=== PATIENT | male | born 1965 | race African-American/Black ===

== ENCOUNTER 2021-10-29 03:01 | Inpatient (IN) | payer MEDICARE, MEDICAID ==
[~2021-10-29] VITALS: Ht 188 cm; Wt 83.9 kg
[2021-10-29] MEDS ORDERED: ACETAMINOPHEN 325MG TABLET PO STA (03:35)
[2021-10-29] MEDS ORDERED: VANCOMYCIN 1G PREMIX 200 ML IV ONE (03:45)
[2021-10-29] MEDS ORDERED: PIPERACILLIN/TAZ 3.375G PREMIX 50 ML IV ONE (03:45)
[2021-10-29 04:22] LABS: HEMATOCRIT. 37.7 % (42.0-52.0); HEMOGLOBIN. 12.2 g/dL (14.0-18.0); MEAN CORPUSCULAR HEMOGLOBIN 28.6 pg (28.0-32.0); MEAN CORPUSCULAR VOLUME 88.6 fL (80.0-94.0); MEAN PLATELET VOLUME 7.9 fl (7.4-10.4); PLATELET 232 x1000/uL (130-400); RED BLOOD CELL COUNT 4.25 mill/uL (4.7-6.1); RED CELL DISTRIBUTION WIDTH 17.9 % (11.6-14.6)
[2021-10-29] MEDS ORDERED: IBUPROFEN 600MG TABLET PO ONE (04:30)
[2021-10-29 04:31] LABS: CHLORIDE 104 mEq/L (98-107)
[2021-10-29 04:42] LABS: INR 1.1; PROTHROMBIN TIME 11.4 sec (9.6-11.0)
[2021-10-29] MEDS ORDERED: SODIUM CHLORIDE 0.9% 1000ML BAG (SEPSIS BOLUS) IV ONE (05:15)
[2021-10-29 05:37] LABS: PLATELET ESTIMATE NORMAL
[2021-10-29 09:00] VITALS: BP 167/90
[2021-10-29] MEDS ORDERED: LORAZEPAM 2MG/ML CPJ IV PRN (09:45)
[2021-10-29] MEDS ORDERED: ENOXAPARIN 40MG/0.4ML SYR SUBCUT SCH (09:45)
[2021-10-29] MEDS ORDERED: DOCUSATE SODIUM 100MG CAPSULE PO PRN (09:45)
[2021-10-29] MEDS ORDERED: DIPHENHYDRAMINE 50MG/ML VIAL IV PRN (09:45)
[2021-10-29] MEDS ORDERED: IPRATROPIUM/ALBUTEROL 0.5-3(2.5)MG/3ML NEB HHN PRN (09:45)
[2021-10-29 10:33] VITALS: BP 167/90
[2021-10-29] MEDS: GUAIFENESIN 200MG/10ML SUGAR FREE UDC PO PRN (11:54)
[2021-10-29] MEDS: HYDROCODONE/ACETAMINOPHEN 5/325MG TABLET PO PRN (11:54)
[2021-10-29] MEDS: ENOXAPARIN 30MG/0.3ML SYR SUBCUT SCH (11:55)
[2021-10-29 12:00] VITALS: BP 169/95
[2021-10-29] MEDS: AMLODIPINE 10MG TABLET PO SCH (13:28)
[2021-10-29] MEDS: CARVEDILOL 6.25 MG TABLET PO SCH ×2 (13:28→21:33)
[2021-10-29] MEDS: MAGNESIUM/ALUMINUM HYDROXIDE/SIMETHICONE 30ML UDC PO PRN (13:43)
[2021-10-29] MEDS ORDERED: LEVOFLOXACIN 500MG PREMIX 100 ML IV SCH (14:00)
[2021-10-29] MEDS: SODIUM CHLORIDE 0.9% INJ 3ML FLUSH IVF SCH ×2 (14:00→21:33)
[2021-10-29] MEDS: ONDANSETRON HCL 4MG/2ML INJ IV PRN (14:09)
[2021-10-29] MEDS: ACETAMINOPHEN 325MG TABLET PO PRN (15:10)
[2021-10-29] MEDS: PROMETHAZINE HCL 6.25 MG/5 ML 118ML PO PRN (15:11)
[2021-10-29 16:00] VITALS: BP 165/87
[2021-10-29] MEDS: MORPHINE SULFATE 2 MG/ML CPJ (NOT FOR IM USE) IV PRN (18:37)
[2021-10-29] MEDS: HYDRALAZINE 20MG/ML VIAL IV PRN (18:37)
[2021-10-29 19:16] LABS: CLARITY URINE CLEAR (CLEAR); COLOR URINE YELLOW (YELLOW); KETONES URINE NEGATIVE (NEGATIVE); LEUKOCYTE ESTERASE URINE NEGATIVE (NEGATIVE); NITRITE URINE NEGATIVE (NEGATIVE); OCCULT BLOOD URINE 1+ (NEGATIVE); PROTEIN URINE 4+ (NEGATIVE); SPECIFIC GRAVITY URINE 1.016 (1.005-1.030); UROBILINOGEN URINE 0.2 E.U./dL (0.2-1.0)
[2021-10-29 20:00] VITALS: BP 151/85
[2021-10-29] MEDS: ATORVASTATIN CALCIUM 20MG TABLET PO SCH (21:33)
[2021-10-30] VITALS (7 sets, daily range): BP systolic 139–181; BP diastolic 83–106
[2021-10-30] MEDS: ONDANSETRON HCL 4MG/2ML INJ IV PRN ×2 (01:59→22:03)
[2021-10-30] MEDS: MORPHINE SULFATE 2 MG/ML CPJ (NOT FOR IM USE) IV PRN (02:00)
[2021-10-30] MEDS: GUAIFENESIN 200MG/10ML SUGAR FREE UDC PO PRN (04:59)
[2021-10-30] MEDS: CLONIDINE 0.1MG TABLET PO PRN ×2 (04:59→19:59)
[2021-10-30] MEDS: SODIUM CHLORIDE 0.9% INJ 3ML FLUSH IVF SCH ×3 (06:10→20:00)
[2021-10-30] MEDS: ACETAMINOPHEN 325MG TABLET PO PRN (06:11)
[2021-10-30] MEDS: HYDROCODONE/ACETAMINOPHEN 5/325MG TABLET PO PRN ×2 (08:07→19:59)
[2021-10-30] MEDS: ASPIRIN 81MG TABLET PO SCH (08:07)
[2021-10-30] MEDS: CARVEDILOL 6.25 MG TABLET PO SCH ×2 (09:00→20:00)
[2021-10-30] MEDS: AMLODIPINE 10MG TABLET PO SCH (09:00)
[2021-10-30] MEDS: ENOXAPARIN 30MG/0.3ML SYR SUBCUT SCH (11:00)
[2021-10-30] MEDS ORDERED: VANCOMYCIN 1GM PMX (XELLIA) 200 ML IV SCH (13:00)
[2021-10-30 16:53] LABS: HEMATOCRIT. 33.9 % (42.0-52.0); HEMOGLOBIN. 11.1 g/dL (14.0-18.0); MEAN CORPUSCULAR HEMOGLOBIN 28.1 pg (28.0-32.0); MEAN CORPUSCULAR VOLUME 86.4 fL (80.0-94.0); PLATELET 216 x1000/uL (130-400); RED BLOOD CELL COUNT 3.93 mill/uL (4.7-6.1); RED CELL DISTRIBUTION WIDTH 18.2 % (11.6-14.6)
[2021-10-30] MEDS: MAGNESIUM/ALUMINUM HYDROXIDE/SIMETHICONE 30ML UDC PO PRN (16:57)
[2021-10-30 17:03] LABS: CHLORIDE 100 mEq/L (98-107)
[2021-10-30 17:28] LABS: HEPATITIS B SURFACE ANTIGEN NEGATIVE
[2021-10-30] MEDS: HYDRALAZINE 20MG/ML VIAL IV PRN (18:10)
[2021-10-30] MEDS: ATORVASTATIN CALCIUM 20MG TABLET PO SCH (19:59)
[2021-10-30 23:21] LABS: PLATELET ESTIMATE NORMAL
[2021-10-31] VITALS (7 sets, daily range): BP systolic 141–170; BP diastolic 75–90
[2021-10-31] MEDS: ACETAMINOPHEN 325MG TABLET PO PRN (04:02)
[2021-10-31] MEDS: CLONIDINE 0.1MG TABLET PO PRN ×2 (05:39→16:18)
[2021-10-31] MEDS: SODIUM CHLORIDE 0.9% INJ 3ML FLUSH IVF SCH ×3 (05:41→22:52)
[2021-10-31] MEDS: PROMETHAZINE HCL 6.25 MG/5 ML 118ML PO PRN (05:47)
[2021-10-31 06:29] LABS: HEMATOCRIT. 34.7 % (42.0-52.0); HEMOGLOBIN. 11.4 g/dL (14.0-18.0); MEAN CORPUSCULAR HEMOGLOBIN 28.5 pg (28.0-32.0); MEAN CORPUSCULAR VOLUME 86.6 fL (80.0-94.0); MEAN PLATELET VOLUME 8.4 fl (7.4-10.4); PLATELET 218 x1000/uL (130-400); RED CELL DISTRIBUTION WIDTH 17.8 % (11.6-14.6)
[2021-10-31] MEDS: AMLODIPINE 10MG TABLET PO SCH (08:22)
[2021-10-31] MEDS: ASPIRIN 81MG TABLET PO SCH (08:22)
[2021-10-31] MEDS: CARVEDILOL 6.25 MG TABLET PO SCH ×2 (08:23→20:59)
[2021-10-31] MEDS: ENOXAPARIN 30MG/0.3ML SYR SUBCUT SCH (10:52)
[2021-10-31] MEDS: MORPHINE SULFATE 2 MG/ML CPJ (NOT FOR IM USE) IV PRN ×2 (12:06→20:58)
[2021-10-31 12:15] LABS: PLATELET ESTIMATE NORMAL
[2021-10-31] MEDS: LEVOFLOXACIN 250MG PREMIX 50 ML IV SCH (13:27)
[2021-10-31] MEDS: ATORVASTATIN CALCIUM 20MG TABLET PO SCH (20:59)
[2021-10-31] MEDS: HYDROCODONE/ACETAMINOPHEN 5/325MG TABLET PO PRN (21:41)
[2021-11-01] VITALS (8 sets, daily range): BP systolic 142–178; BP diastolic 73–100
[2021-11-01] MEDS: CLONIDINE 0.1MG TABLET PO PRN ×2 (00:01→13:08)
[2021-11-01] MEDS: MORPHINE SULFATE 2 MG/ML CPJ (NOT FOR IM USE) IV PRN ×3 (02:08→14:03)
[2021-11-01] MEDS: SODIUM CHLORIDE 0.9% INJ 3ML FLUSH IVF SCH ×3 (06:16→20:55)
[2021-11-01 06:58] LABS: HEMATOCRIT. 33.2 % (42.0-52.0); HEMOGLOBIN. 11.2 g/dL (14.0-18.0); MEAN CORPUSCULAR VOLUME 85.7 fL (80.0-94.0); MEAN PLATELET VOLUME 8.5 fl (7.4-10.4); PLATELET 218 x1000/uL (130-400); RED BLOOD CELL COUNT 3.87 mill/uL (4.7-6.1); RED CELL DISTRIBUTION WIDTH 17.5 % (11.6-14.6)
[2021-11-01] MEDS: CARVEDILOL 6.25 MG TABLET PO SCH ×2 (08:08→20:55)
[2021-11-01] MEDS: ASPIRIN 81MG TABLET PO SCH (08:08)
[2021-11-01] MEDS: AMLODIPINE 10MG TABLET PO SCH (08:08)
[2021-11-01] MEDS: HYDRALAZINE 20MG/ML VIAL IV PRN (08:09)
[2021-11-01] MEDS: MAGNESIUM/ALUMINUM HYDROXIDE/SIMETHICONE 30ML UDC PO PRN (08:33)
[2021-11-01] MEDS ORDERED: LIDOCAINE HCL/PF 1% 2ML VIAL ONE (09:03)
[2021-11-01] MEDS: PANTOPRAZOLE 40MG DR TABLET PO SCH (09:37)
[2021-11-01 10:53] LABS: PLATELET ESTIMATE NORMAL
[2021-11-01] MEDS: ENOXAPARIN 30MG/0.3ML SYR SUBCUT SCH (11:42)
[2021-11-01 14:59] LABS: BG BASE EXCESS 0.1 mmol/L (-2.0-2.0); BG CARBOXYHEMOGLOBIN 0.7 % (0.5-1.5); BG DEOXYHEMOGLOBIN 3.8 % (0.0-5.0); BG HCO3 ACT 23.5 mmol/L (22.0-26.0); BG OXYGEN SATURATION 96.2 % (92.0-98.5); BG OXYHEMOGLOBIN 95.5 % (94.0-97.0); BG PCO2 34.2 mmHg (35.0-45.0); BG PH 7.455 (7.350-7.450); BG PO2 89.2 mmHg (75.0-100.0); BG SAMPLE SITE LEFT RADIAL; BG TOTAL HEMOGLOBIN 12.7 g/dL (12.0-18.0); BG VENT MODE ROOM AIR
[2021-11-01] MEDS: ATORVASTATIN CALCIUM 20MG TABLET PO SCH (20:55)
[2021-11-01] MEDS ORDERED: VANCOMYCIN 750 MG in DEXT 5% WATER 250 ML IV NR (21:00)
[2021-11-01] MEDS: HYDROCODONE/ACETAMINOPHEN 5/325MG TABLET PO PRN (23:30)
[2021-11-02] VITALS (17 sets, daily range): BP systolic 116–169; BP diastolic 56–84
[2021-11-02] MEDS: MORPHINE SULFATE 2 MG/ML CPJ (NOT FOR IM USE) IV PRN (04:20)
[2021-11-02] MEDS: SODIUM CHLORIDE 0.9% INJ 3ML FLUSH IVF SCH ×3 (06:15→21:00)
[2021-11-02 06:34] LABS: HEMOGLOBIN. 11.8 g/dL (14.0-18.0); MEAN CORPUSCULAR HEMOGLOBIN 28.4 pg (28.0-32.0); MEAN CORPUSCULAR VOLUME 86.3 fL (80.0-94.0); MEAN PLATELET VOLUME 8.1 fl (7.4-10.4); PLATELET 245 x1000/uL (130-400); RED BLOOD CELL COUNT 4.17 mill/uL (4.7-6.1); RED CELL DISTRIBUTION WIDTH 17.8 % (11.6-14.6)
[2021-11-02] MEDS ORDERED: THROMBIN (BOVINE) 5000 UNITS/VIAL TOP ONE ×2 (07:05→08:11)
[2021-11-02] MEDS ORDERED: GENTAMICIN SULF 40MG/ML 2ML VIAL ONE (07:05)
[2021-11-02] MEDS ORDERED: LIDOCAINE HCL/EPINEPHRINE 1%-EPI 1:100,000 20 ML VIAL ONE (07:06)
[2021-11-02] MEDS: PANTOPRAZOLE 40MG DR TABLET PO SCH (07:40)
[2021-11-02] MEDS: AMLODIPINE 10MG TABLET PO SCH (09:00)
[2021-11-02] MEDS: CARVEDILOL 6.25 MG TABLET PO SCH ×2 (09:00→21:00)
[2021-11-02] MEDS: ASPIRIN 81MG TABLET PO SCH (09:00)
[2021-11-02] MEDS ORDERED: ROCURONIUM BROMIDE 10MG/ML VIAL 5ML IV ONE (09:52)
[2021-11-02] MEDS: SODIUM CHLORIDE 0.9% 1,000 ML IV SCH ×2 (10:15→20:51)
[2021-11-02] MEDS ORDERED: HYDROMORPHONE HCL/PF 2MG/ML CPJ ONE (10:22)
[2021-11-02] MEDS ORDERED: NALOXONE HCL 0.4MG/ML VIAL IV PRN (10:30)
[2021-11-02] MEDS ORDERED: ALBUMIN HUMAN 12.5GM/50ML (25%) IV ONE (10:40)
[2021-11-02] MEDS: ENOXAPARIN 30MG/0.3ML SYR SUBCUT SCH (11:00)
[2021-11-02] MEDS ORDERED: EPHEDRINE SULFATE 50MG/ML VIAL ONE (11:25)
[2021-11-02] MEDS ORDERED: DEXAMETHASONE 4MG/ML 1ML VIAL ONE (11:25)
[2021-11-02] MEDS ORDERED: HYDRALAZINE 20MG/ML VIAL ONE (11:25)
[2021-11-02] MEDS ORDERED: NEOSTIGMINE METHYLSULFATE 1MG/ML 10 ML VIAL ONE (11:26)
[2021-11-02] MEDS ORDERED: GLYCOPYRROLATE 0.2 MG/ML 2ML VIAL ONE ×3 (11:27)
[2021-11-02] MEDS: HYDRALAZINE 20MG/ML VIAL IV PRN ×5 (13:59→15:44)
[2021-11-02] MEDS: LEVOFLOXACIN 250MG PREMIX 50 ML IV SCH (14:00)
[2021-11-02] MEDS: CLONIDINE 0.1MG TABLET PO PRN (15:29)
[2021-11-02] MEDS ORDERED: NICARDIPINE 40MG/200ML PREMIX 200 ML IV PRN (16:00)
[2021-11-02] MEDS: MORPHINE SULFATE 4 MG/ML CPJ (NOT FOR IM USE) IV PRN (20:57)
[2021-11-02] MEDS: ONDANSETRON HCL 4MG/2ML INJ IV PRN (21:00)
[2021-11-02] MEDS: ATORVASTATIN CALCIUM 20MG TABLET PO SCH (21:00)
[2021-11-02] MEDS: PROMETHAZINE HCL 6.25 MG/5 ML 118ML PO PRN (21:22)
[2021-11-02] MEDS: ACETAMINOPHEN 325MG TABLET PO PRN (23:08)
[2021-11-02] MEDS: NICARDIPINE 100 MG in SODIUM CHLORIDE 0.9% 60 ML IV PRN (23:53)
[2021-11-03] VITALS (53 sets, daily range): BP systolic 126–168; BP diastolic 58–105
[2021-11-03 05:33] LABS: HEMATOCRIT. 33.6 % (42.0-52.0); HEMOGLOBIN. 10.8 g/dL (14.0-18.0); MEAN CORPUSCULAR HEMOGLOBIN 28.2 pg (28.0-32.0); MEAN CORPUSCULAR VOLUME 87.9 fL (80.0-94.0); MEAN PLATELET VOLUME 8.4 fl (7.4-10.4); PLATELET 323 x1000/uL (130-400); RED BLOOD CELL COUNT 3.83 mill/uL (4.7-6.1)
[2021-11-03] MEDS: SODIUM CHLORIDE 0.9% INJ 3ML FLUSH IVF SCH ×3 (06:54→21:25)
[2021-11-03] MEDS: CARVEDILOL 6.25 MG TABLET PO SCH ×2 (08:28→20:17)
[2021-11-03] MEDS: ASPIRIN 81MG TABLET PO SCH (08:28)
[2021-11-03] MEDS: AMLODIPINE 10MG TABLET PO SCH (08:28)
[2021-11-03 08:40] LABS: PLATELET ESTIMATE NORMAL
[2021-11-03] MEDS ORDERED: FAMOTIDINE 20MG TABLET PO SCH (09:00)
[2021-11-03] MEDS: NICARDIPINE 100 MG in SODIUM CHLORIDE 0.9% 60 ML IV PRN (09:31)
[2021-11-03] MEDS: ENOXAPARIN 30MG/0.3ML SYR SUBCUT SCH (10:16)
[2021-11-03] MEDS: PANTOPRAZOLE 40MG DR TABLET PO SCH (11:31)
[2021-11-03] MEDS: ACETAMINOPHEN 325MG TABLET PO PRN (11:31)
[2021-11-03 11:40] LABS: PLATELET ESTIMATE NORMAL
[2021-11-03] MEDS: CEFAZOLIN 1000MG PREMIX 50 ML IV SCH (14:32)
[2021-11-03] MEDS: MORPHINE SULFATE 4 MG/ML CPJ (NOT FOR IM USE) IV PRN (14:32)
[2021-11-03] MEDS: ATORVASTATIN CALCIUM 20MG TABLET PO SCH (20:17)
[2021-11-03] MEDS ORDERED: VANCOMYCIN 500 MG in DEXT 5% WATER 100 ML IV SCH (21:00)
[2021-11-03] MEDS: CLONIDINE 0.1MG TABLET PO PRN (22:17)
[2021-11-04] MEDS: MORPHINE SULFATE 4 MG/ML CPJ (NOT FOR IM USE) IV PRN ×2 (02:39→09:50)
[2021-11-04 04:00] VITALS: BP 149/70
[2021-11-04] MEDS: SODIUM CHLORIDE 0.9% INJ 3ML FLUSH IVF SCH ×3 (06:26→21:19)
[2021-11-04] MEDS: PANTOPRAZOLE 40MG DR TABLET PO SCH (06:26)
[2021-11-04 08:00] VITALS: BP 173/85
[2021-11-04 08:12] LABS: BASOPHILS % 0.2 % (0.0-2.0); EOSINOPHILS % 0.2 % (0.0-5.0); HEMATOCRIT. 30.1 % (42.0-52.0); HEMOGLOBIN. 9.9 g/dL (14.0-18.0); MEAN CORPUSCULAR HEMOGLOBIN 28.6 pg (28.0-32.0); MEAN CORPUSCULAR VOLUME 86.6 fL (80.0-94.0); MONOCYTES % 7.9 % (2.0-8.0); NEUTROPHILS % 82.7 % (40.0-76.0); PLATELET 341 x1000/uL (130-400); RED BLOOD CELL COUNT 3.47 mill/uL (4.7-6.1); RED CELL DISTRIBUTION WIDTH 17.3 % (11.6-14.6)
[2021-11-04] MEDS: CARVEDILOL 6.25 MG TABLET PO SCH ×2 (09:48→21:19)
[2021-11-04] MEDS: AMLODIPINE 10MG TABLET PO SCH (09:48)
[2021-11-04] MEDS: ASPIRIN 81MG TABLET PO SCH (09:48)
[2021-11-04 12:00] VITALS: BP 184/89
[2021-11-04] MEDS: CLONIDINE 0.1MG TABLET PO PRN ×2 (13:11→21:19)
[2021-11-04] MEDS: CEFAZOLIN 1000MG PREMIX 50 ML IV SCH (13:12)
[2021-11-04 16:00] VITALS: BP 188/88
[2021-11-04] MEDS: ACETAMINOPHEN 325MG TABLET PO PRN (16:03)
[2021-11-04 20:00] VITALS: BP 175/85
[2021-11-04] MEDS: ATORVASTATIN CALCIUM 20MG TABLET PO SCH (21:19)
[2021-11-05] VITALS: BP 140/76
[2021-11-05] MEDS: ACETAMINOPHEN 325MG TABLET PO PRN ×3 (03:15→19:49)
[2021-11-05 04:00] VITALS: BP 158/83
[2021-11-05 05:52] LABS: BASOPHILS % 0.3 % (0.0-2.0); EOSINOPHILS % 0.5 % (0.0-5.0); HEMOGLOBIN. 10.3 g/dL (14.0-18.0); LYMPHOCYTES % 9.3 % (20.0-50.0); MEAN CORPUSCULAR VOLUME 86.9 fL (80.0-94.0); MEAN PLATELET VOLUME 7.8 fl (7.4-10.4); MONOCYTES % 9.6 % (2.0-8.0); NEUTROPHILS % 80.3 % (40.0-76.0); PLATELET 350 x1000/uL (130-400); RED BLOOD CELL COUNT 3.68 mill/uL (4.7-6.1); RED CELL DISTRIBUTION WIDTH 17.4 % (11.6-14.6)
[2021-11-05] MEDS: SODIUM CHLORIDE 0.9% INJ 3ML FLUSH IVF SCH ×3 (06:36→21:00)
[2021-11-05] MEDS: PANTOPRAZOLE 40MG DR TABLET PO SCH (06:36)
[2021-11-05] MEDS: CLONIDINE 0.1MG TABLET PO PRN ×2 (06:52→17:49)
[2021-11-05 08:00] VITALS: BP 183/52
[2021-11-05] MEDS ORDERED: SODIUM POLYSTYRENE SULFONATE 15 G/60 ML BOT PO NR (08:00)
[2021-11-05] MEDS ORDERED: LIDOCAINE HCL 1% 10 MG/ML 10ML VIAL ONE (08:55)
[2021-11-05] MEDS: CARVEDILOL 6.25 MG TABLET PO SCH ×2 (10:37→20:57)
[2021-11-05] MEDS: AMLODIPINE 10MG TABLET PO SCH (10:37)
[2021-11-05 12:00] VITALS: BP 182/71
[2021-11-05] MEDS: CEFAZOLIN 1000MG PREMIX 50 ML IV SCH (14:11)
[2021-11-05 16:00] VITALS: BP 189/69
[2021-11-05] MEDS: LACTOBACILLUS GG CAPSULE PO SCH (18:00)
[2021-11-05] MEDS: HYDRALAZINE 20MG/ML VIAL IV PRN (19:49)
[2021-11-05 20:00] VITALS: BP 161/65
[2021-11-05] MEDS: ATORVASTATIN CALCIUM 20MG TABLET PO SCH (20:56)
[2021-11-06] VITALS (8 sets, daily range): BP systolic 127–240; BP diastolic 63–138
[2021-11-06] MEDS: PANTOPRAZOLE 40MG DR TABLET PO SCH (06:35)
[2021-11-06] MEDS: ACETAMINOPHEN 325MG TABLET PO PRN ×3 (06:35→21:42)
[2021-11-06] MEDS: SODIUM CHLORIDE 0.9% INJ 3ML FLUSH IVF SCH ×3 (06:36→22:01)
[2021-11-06] MEDS: HYDRALAZINE 20MG/ML VIAL IV PRN ×3 (06:41→23:05)
[2021-11-06] MEDS: CLONIDINE 0.1MG TABLET PO PRN ×2 (08:36→15:16)
[2021-11-06] MEDS: CARVEDILOL 6.25 MG TABLET PO SCH ×2 (08:36→21:00)
[2021-11-06] MEDS: AMLODIPINE 10MG TABLET PO SCH ×2 (08:36→21:47)
[2021-11-06] MEDS: LACTOBACILLUS GG CAPSULE PO SCH (08:43)
[2021-11-06] MEDS: CEFAZOLIN 1000MG PREMIX 50 ML IV SCH (12:00)
[2021-11-06 12:22] LABS: HEMOGLOBIN. 9.6 g/dL (14.0-18.0); MEAN CORPUSCULAR HEMOGLOBIN 28.5 pg (28.0-32.0); MEAN CORPUSCULAR VOLUME 86.7 fL (80.0-94.0); MEAN PLATELET VOLUME 7.5 fl (7.4-10.4); PLATELET 420 x1000/uL (130-400); RED BLOOD CELL COUNT 3.35 mill/uL (4.7-6.1); RED CELL DISTRIBUTION WIDTH 17.4 % (11.6-14.6)
[2021-11-06] MEDS: HYDRALAZINE HCL 100MG TABLET PO SCH ×3 (17:49→21:49)
[2021-11-06 17:59] LABS: PLATELET ESTIMATE INCREASED
[2021-11-06] MEDS: ONDANSETRON HCL 4MG/2ML INJ IV PRN (19:00)
[2021-11-06] MEDS: ATORVASTATIN CALCIUM 20MG TABLET PO SCH (21:40)
[2021-11-06] MEDS ORDERED: CLONIDINE 0.2MG TABLET PO PRN (21:45)
[2021-11-06] MEDS ORDERED: HYDRALAZINE HCL 100MG TABLET PO SCH (22:00)
[2021-11-07] VITALS (7 sets, daily range): BP systolic 144–194; BP diastolic 68–97
[2021-11-07] MEDS ORDERED: AMLODIPINE 10MG TABLET PO NR (00:45)
[2021-11-07] MEDS ORDERED: AMLO10TA80 PO (02:19)
[2021-11-07] MEDS: ACETAMINOPHEN 325MG TABLET PO PRN ×2 (03:44→10:29)
[2021-11-07] MEDS: SODIUM CHLORIDE 0.9% INJ 3ML FLUSH IVF SCH ×3 (06:35→22:47)
[2021-11-07] MEDS: PANTOPRAZOLE 40MG DR TABLET PO SCH (06:35)
[2021-11-07] MEDS: HYDRALAZINE HCL 100MG TABLET PO SCH ×3 (06:36→23:25)
[2021-11-07 06:49] LABS: HEMATOCRIT. 29.6 % (42.0-52.0); HEMOGLOBIN. 9.5 g/dL (14.0-18.0); MEAN CORPUSCULAR VOLUME 87.1 fL (80.0-94.0); MEAN PLATELET VOLUME 7.7 fl (7.4-10.4); PLATELET 474 x1000/uL (130-400); RED CELL DISTRIBUTION WIDTH 17.3 % (11.6-14.6)
[2021-11-07] MEDS: CARVEDILOL 6.25 MG TABLET PO SCH ×2 (09:08→21:00)
[2021-11-07] MEDS: LACTOBACILLUS GG CAPSULE PO SCH (09:08)
[2021-11-07] MEDS: AMLODIPINE 10MG TABLET PO SCH ×2 (09:09→18:25)
[2021-11-07] MEDS ORDERED: PHENYLEPHRINE 100 MG in DEXT 5% WATER 240 ML IV PRN (12:15)
[2021-11-07] MEDS ORDERED: TRAMADOL 50MG TABLET PO PRN (12:45)
[2021-11-07] MEDS ORDERED: NALOXONE HCL 0.4MG/ML VIAL IV PRN (13:00)
[2021-11-07] MEDS ORDERED: ALBUMIN HUMAN 12.5GM/50ML (25%) IV SCH (13:00)
[2021-11-07] MEDS: HYDRALAZINE 20MG/ML VIAL IV PRN (15:29)
[2021-11-07] MEDS: CEFAZOLIN 1000MG PREMIX 50 ML IV SCH (16:48)
[2021-11-07 21:10] LABS: PLATELET ESTIMATE INCREASED
[2021-11-07] MEDS: ATORVASTATIN CALCIUM 20MG TABLET PO SCH (21:14)
[2021-11-08] VITALS: BP 147/80
[2021-11-08 05:00] VITALS: BP 174/96
[2021-11-08] MEDS: HYDRALAZINE HCL 100MG TABLET PO SCH ×3 (05:05→22:00)
[2021-11-08] MEDS: SODIUM CHLORIDE 0.9% INJ 3ML FLUSH IVF SCH ×3 (05:05→22:01)
[2021-11-08] MEDS: PANTOPRAZOLE 40MG DR TABLET PO SCH (06:28)
[2021-11-08 08:00] VITALS: BP 150/82
[2021-11-08] MEDS: AMLODIPINE 10MG TABLET PO SCH ×2 (10:25→17:29)
[2021-11-08] MEDS: CARVEDILOL 6.25 MG TABLET PO SCH ×2 (10:25→22:01)
[2021-11-08] MEDS: LACTOBACILLUS GG CAPSULE PO SCH (10:25)
[2021-11-08 12:00] VITALS: BP 142/75
[2021-11-08] MEDS: CEFAZOLIN 1000MG PREMIX 50 ML IV SCH (13:16)
[2021-11-08] MEDS: ACETAMINOPHEN 325MG TABLET PO PRN (15:35)
[2021-11-08 16:00] VITALS: BP 163/85
[2021-11-08 20:00] VITALS: BP 149/77
[2021-11-08] MEDS: ATORVASTATIN CALCIUM 20MG TABLET PO SCH (22:01)
[2021-11-09] VITALS: BP 138/72
[2021-11-09 04:00] VITALS: BP 108/60
[2021-11-09] MEDS: HYDRALAZINE HCL 100MG TABLET PO SCH ×3 (05:25→21:11)
[2021-11-09] MEDS: SODIUM CHLORIDE 0.9% INJ 3ML FLUSH IVF SCH ×3 (06:19→21:11)
[2021-11-09] MEDS: PANTOPRAZOLE 40MG DR TABLET PO SCH (06:22)
[2021-11-09] MEDS: ACETAMINOPHEN 325MG TABLET PO PRN ×2 (06:22→16:34)
[2021-11-09 07:12] LABS: HEMATOCRIT. 28.6 % (42.0-52.0); HEMOGLOBIN. 9.4 g/dL (14.0-18.0); MEAN CORPUSCULAR HEMOGLOBIN 28.7 pg (28.0-32.0); MEAN CORPUSCULAR VOLUME 87.4 fL (80.0-94.0); MEAN PLATELET VOLUME 8.1 fl (7.4-10.4); PLATELET 695 x1000/uL (130-400); RED BLOOD CELL COUNT 3.27 mill/uL (4.7-6.1); RED CELL DISTRIBUTION WIDTH 17.7 % (11.6-14.6)
[2021-11-09 08:00] VITALS: BP 151/77
[2021-11-09] MEDS: CARVEDILOL 6.25 MG TABLET PO SCH ×2 (08:57→21:10)
[2021-11-09] MEDS: AMLODIPINE 10MG TABLET PO SCH ×2 (08:57→16:33)
[2021-11-09] MEDS: LACTOBACILLUS GG CAPSULE PO SCH (08:57)
[2021-11-09 12:00] VITALS: BP 175/96
[2021-11-09] MEDS: HYDRALAZINE 20MG/ML VIAL IV PRN (14:35)
[2021-11-09 16:00] VITALS: BP 157/79
[2021-11-09] MEDS: CEFAZOLIN 1000MG PREMIX 50 ML IV SCH (16:33)
[2021-11-09 16:44] LABS: PLATELET ESTIMATE INCREASED
[2021-11-09 20:00] VITALS: BP 164/85
[2021-11-09] MEDS ORDERED: CEFEPIME 1,000 MG in DEXTROSE 5% WATER 50 ML IV SCH (21:00)
[2021-11-09] MEDS: ATORVASTATIN CALCIUM 20MG TABLET PO SCH (21:11)
[2021-11-10] MEDS ORDERED: ATOR20TA PO (00:29)
[2021-11-10] MEDS ORDERED: HYDR100T26 PO (00:43)
[2021-11-10] MEDS ORDERED: COR6 PO (00:43)
[2021-11-10] MEDS ORDERED: PROT40 PO (00:43)
[2021-11-10] MEDS ORDERED: ENOX40SY27 SQ (00:43)
[2021-11-10] MEDS ORDERED: B50 IVP (00:47)
[2021-11-10] MEDS ORDERED: CEFE1FRO2 IV (00:47)
[2021-11-10] MEDS ORDERED: LACT1CAP56 PO (00:47)
== END 2021-11-09 23:33 | DRG 853 ==
LOC: ER 03:01 → 7WST 06:55 → ENRESERV 08:43 → MICUNO 11-02 20:44 → 6WST 11-03 17:00
PROVIDERS: ADMIT Internal Medicine; ATTEND Internal Medicine
PROC: 5A1D70Z Performance of Urinary Filtration, Intermittent, Less than 6 Hours Per Day (ICD-10-PCS; 2021-10-29)
PROC: 5A1D70Z Performance of Urinary Filtration, Intermittent, Less than 6 Hours Per Day (ICD-10-PCS; 2021-10-31)
PROC: 00NY0ZZ Release Lumbar Spinal Cord, Open Approach (ICD-10-PCS; principal; 2021-11-02)
PROC: 5A1D70Z Performance of Urinary Filtration, Intermittent, Less than 6 Hours Per Day (ICD-10-PCS; 2021-11-02)
PROC: 0QB00ZX Excision of Lumbar Vertebra, Open Approach, Diagnostic (ICD-10-PCS; 2021-11-02)
PROC: 0QB10ZX Excision of Sacrum, Open Approach, Diagnostic (ICD-10-PCS; 2021-11-02)
PROC: 5A1D70Z Performance of Urinary Filtration, Intermittent, Less than 6 Hours Per Day (ICD-10-PCS; 2021-11-04)
PROC: 5A1D70Z Performance of Urinary Filtration, Intermittent, Less than 6 Hours Per Day (ICD-10-PCS; 2021-11-05)
PROC: 05HY33Z Insertion of Infusion Device into Upper Vein, Percutaneous Approach (ICD-10-PCS; 2021-11-05)
PROC: 5A1D70Z Performance of Urinary Filtration, Intermittent, Less than 6 Hours Per Day (ICD-10-PCS; 2021-11-08)
DX: A41.01 Sepsis due to Methicillin susceptible Staphylococcus aureus (principal); N18.6 End stage renal disease; I21.4 Non-ST elevation (NSTEMI) myocardial infarction; G06.2 Extradural and subdural abscess, unspecified; I50.21 Acute systolic (congestive) heart failure; I13.2 Hypertensive heart and chronic kidney disease with heart failure and with stage 5 chronic kidney disease, or end stage renal disease; E87.1 Hypo-osmolality and hyponatremia; E44.1 Mild protein-calorie malnutrition; G82.20 Paraplegia, unspecified; M46.26 Osteomyelitis of vertebra, lumbar region; M46.46 Discitis, unspecified, lumbar region; M46.47 Discitis, unspecified, lumbosacral region; M48.07 Spinal stenosis, lumbosacral region; E11.22 Type 2 diabetes mellitus with diabetic chronic kidney disease; I16.0 Hypertensive urgency; D63.8 Anemia in other chronic diseases classified elsewhere; E87.5 Hyperkalemia; I07.1 Rheumatic tricuspid insufficiency; K21.9 Gastro-esophageal reflux disease without esophagitis; K29.70 Gastritis, unspecified, without bleeding; Z20.822 Contact with and (suspected) exposure to COVID-19; D63.1 Anemia in chronic kidney disease; Z68.23 Body mass index [BMI] 23.0-23.9, adult; R26.9 Unspecified abnormalities of gait and mobility; I35.0 Nonrheumatic aortic (valve) stenosis; I34.0 Nonrheumatic mitral (valve) insufficiency; Z79.4 Long term (current) use of insulin; Z99.2 Dependence on renal dialysis; Z87.891 Personal history of nicotine dependence
CPT/HCPCS: 36415; 36573; 36600; 71045; 72100; 72141; 72146; 72148; 76000; 80048; 80053; 80202; 81003; 82375; 82805; 83036; 83605; 83880; 84145; 84484; 85025; 85651; 86705; 86709; 86803; 86850; 86900; 87070; 87075; 87186; 87340; 87426; 87804; 88304; 88311; 93005; 93306; 93970; 95925; 95926; 95928; 95929; 97110; 97116; 97162; 97166; 97530; 97535; 99291; C1725; C9803; J0360; J0690; J0692; J1100; J1170; J1580; J1650; J1956; J2270; J2405; J2543; J2710; J3370; J3490; J7030; J7050; J7060; P9047; Q0169

== ENCOUNTER 2021-11-08 23:30 | Inpatient (IN) | payer MEDICARE, MEDICAID ==
[~2021-11-08] VITALS: Ht 188 cm; Wt 83.9 kg
[~2021-11-08 23:30] MED LIST: AMLO10TA80 PO
[2021-11-09 23:30] VITALS: BP 169/88
[2021-11-10] VITALS: BP 169/88
[2021-11-10] MEDS ORDERED: ATOR20TA PO (00:29)
[2021-11-10] MEDS ORDERED: ENOX40SY27 SQ (00:43)
[2021-11-10] MEDS ORDERED: COR6 PO (00:43)
[2021-11-10] MEDS ORDERED: PROT40 PO (00:43)
[2021-11-10] MEDS ORDERED: HYDR100T26 PO (00:43)
[2021-11-10] MEDS ORDERED: CEFE1FRO2 IV (00:47)
[2021-11-10] MEDS ORDERED: LACT1CAP56 PO (00:47)
[2021-11-10] MEDS ORDERED: B50 IVP (00:47)
[2021-11-10] MEDS ORDERED: PROMETHAZINE/DEXTROMETHORPHAN 6.25-15MG/5ML BOTTLE 120ML PO PRN (01:00)
[2021-11-10] MEDS ORDERED: IPRATROPIUM/ALBUTEROL 0.5-3(2.5)MG/3ML NEB HHN PRN (01:00)
[2021-11-10] MEDS ORDERED: DIPHENHYDRAMINE 50MG/ML VIAL IV PRN (01:00)
[2021-11-10] MEDS ORDERED: DOCUSATE SODIUM 100MG CAPSULE PO PRN (01:00)
[2021-11-10] MEDS ORDERED: HYDRALAZINE 20MG/ML VIAL IV PRN (01:00)
[2021-11-10] MEDS ORDERED: GUAIFENESIN 200MG/10ML SUGAR FREE UDC PO PRN ×2 (01:00)
[2021-11-10] MEDS ORDERED: HYDRALAZINE 10 MG in SODIUM CHLORIDE 0.9% 49.5 ML IV PRN (02:00)
[2021-11-10] MEDS: CLONIDINE 0.2MG TABLET PO PRN ×2 (05:46→21:02)
[2021-11-10] MEDS: ACETAMINOPHEN 325MG TABLET PO PRN ×2 (05:47→14:29)
[2021-11-10 06:37] LABS: BASOPHILS % 0.6 % (0.0-2.0); EOSINOPHILS % 0.3 % (0.0-5.0); HEMATOCRIT. 27.5 % (42.0-52.0); LYMPHOCYTES % 7.7 % (20.0-50.0); MEAN CORPUSCULAR HEMOGLOBIN 28.6 pg (28.0-32.0); MEAN CORPUSCULAR VOLUME 87.2 fL (80.0-94.0); MEAN PLATELET VOLUME 7.4 fl (7.4-10.4); MONOCYTES % 7.3 % (2.0-8.0); NEUTROPHILS % 84.1 % (40.0-76.0); PLATELET 527 x1000/uL (130-400); RED BLOOD CELL COUNT 3.16 mill/uL (4.7-6.1); RED CELL DISTRIBUTION WIDTH 17.4 % (11.6-14.6)
[2021-11-10 07:35] LABS: CHLORIDE 101 mEq/L (98-107)
[2021-11-10 08:00] VITALS: BP 180/100
[2021-11-10] MEDS: CARVEDILOL 6.25 MG TABLET PO SCH ×2 (08:49→17:42)
[2021-11-10] MEDS: HYDRALAZINE HCL 100MG TABLET PO SCH ×2 (08:49→17:41)
[2021-11-10] MEDS: AMLODIPINE 10MG TABLET PO SCH ×2 (08:50→17:42)
[2021-11-10] MEDS: PANTOPRAZOLE 40MG DR TABLET PO SCH (08:50)
[2021-11-10] MEDS: ATORVASTATIN CALCIUM 20MG TABLET PO SCH (08:50)
[2021-11-10] MEDS: TRAMADOL 50MG TABLET PO PRN ×2 (08:52→17:44)
[2021-11-10] MEDS ORDERED: ENOXAPARIN 40MG/0.4ML SYR SUBCUT SCH (09:00)
[2021-11-10 16:00] VITALS: BP 171/79
[2021-11-10] MEDS ORDERED: LACTULOSE 20G/30ML UDC PO PRN (16:45)
[2021-11-10] MEDS: SENNOSIDES/DOCUSATE SOD 8.6/50MG TABLET PO SCH (17:41)
[2021-11-10 20:46] VITALS: BP 177/85
[2021-11-10 21:02] VITALS: BP 166/73
[2021-11-10] MEDS: CEFEPIME 1,000 MG in DEXTROSE 5% WATER 50 ML IV SCH (21:45)
[2021-11-11] VITALS: BP 138/59
[2021-11-11] MEDS: HYDRALAZINE HCL 100MG TABLET PO SCH ×3 (00:02→16:43)
[2021-11-11] MEDS: ACETAMINOPHEN 325MG TABLET PO PRN ×2 (00:37→09:36)
[2021-11-11 07:51] VITALS: BP 178/96
[2021-11-11 09:09] LABS: BASOPHILS % 0.8 % (0.0-2.0); EOSINOPHILS % 0.6 % (0.0-5.0); HEMATOCRIT. 29.9 % (42.0-52.0); HEMOGLOBIN. 9.6 g/dL (14.0-18.0); LYMPHOCYTES % 7.4 % (20.0-50.0); MEAN CORPUSCULAR HEMOGLOBIN 28.3 pg (28.0-32.0); MEAN CORPUSCULAR VOLUME 88.4 fL (80.0-94.0); MEAN PLATELET VOLUME 7.5 fl (7.4-10.4); MONOCYTES % 5.5 % (2.0-8.0); NEUTROPHILS % 85.7 % (40.0-76.0); PLATELET 664 x1000/uL (130-400); RED BLOOD CELL COUNT 3.38 mill/uL (4.7-6.1); RED CELL DISTRIBUTION WIDTH 17.8 % (11.6-14.6)
[2021-11-11] MEDS: AMLODIPINE 10MG TABLET PO SCH ×2 (09:36→16:44)
[2021-11-11] MEDS: PANTOPRAZOLE 40MG DR TABLET PO SCH (09:36)
[2021-11-11] MEDS: CARVEDILOL 6.25 MG TABLET PO SCH ×2 (09:36→16:43)
[2021-11-11] MEDS: ATORVASTATIN CALCIUM 20MG TABLET PO SCH (09:36)
[2021-11-11 10:23] LABS: FOLIC ACID (FOLATE) SERUM 8.6 ng/mL (>5.38)
[2021-11-11 12:24] LABS: HEPATITIS B SURFACE ANTIGEN NEGATIVE
[2021-11-11] MEDS: SENNOSIDES/DOCUSATE SOD 8.6/50MG TABLET PO SCH (16:43)
[2021-11-11 20:00] VITALS: BP 175/91
[2021-11-11] MEDS: TRAMADOL 50MG TABLET PO PRN (20:12)
[2021-11-11] MEDS ORDERED: MORPHINE SULFATE 2 MG/ML CPJ (NOT FOR IM USE) IV PRN (21:30)
[2021-11-11] MEDS ORDERED: NALOXONE HCL 0.4MG/ML VIAL IV PRN (21:45)
[2021-11-12] MEDS: CEFEPIME 1,000 MG in DEXTROSE 5% WATER 50 ML IV SCH ×2 (01:04→20:08)
[2021-11-12] MEDS: HYDRALAZINE HCL 100MG TABLET PO SCH ×3 (01:04→16:46)
[2021-11-12] MEDS: TRAMADOL 50MG TABLET PO PRN ×2 (02:40→13:34)
[2021-11-12] MEDS: ACETAMINOPHEN 325MG TABLET PO PRN ×2 (07:53→20:17)
[2021-11-12 08:00] VITALS: BP 171/78
[2021-11-12] MEDS: ENOXAPARIN 30MG/0.3ML SYR SUBCUT SCH (09:35)
[2021-11-12] MEDS: ATORVASTATIN CALCIUM 20MG TABLET PO SCH (09:36)
[2021-11-12] MEDS: AMLODIPINE 10MG TABLET PO SCH ×2 (09:36→16:46)
[2021-11-12] MEDS: FAMOTIDINE 20MG TABLET PO SCH (09:37)
[2021-11-12] MEDS: CARVEDILOL 6.25 MG TABLET PO SCH ×2 (09:37→16:46)
[2021-11-12] MEDS: ONDANSETRON HCL 4MG/2ML INJ IV PRN (15:30)
[2021-11-12] MEDS: SENNOSIDES/DOCUSATE SOD 8.6/50MG TABLET PO SCH (16:46)
[2021-11-12 20:00] VITALS: BP 155/71
[2021-11-12] MEDS: MAGNESIUM/ALUMINUM HYDROXIDE/SIMETHICONE 30ML UDC PO PRN (23:56)
[2021-11-13] MEDS: HYDRALAZINE HCL 100MG TABLET PO SCH ×3 (00:02→17:31)
[2021-11-13] MEDS: ACETAMINOPHEN 325MG TABLET PO PRN ×2 (05:52→06:01)
[2021-11-13 05:53] LABS: BASOPHILS % 1.2 % (0.0-2.0); EOSINOPHILS % 0.6 % (0.0-5.0); HEMATOCRIT. 31.1 % (42.0-52.0); HEMOGLOBIN. 10.1 g/dL (14.0-18.0); LYMPHOCYTES % 9.8 % (20.0-50.0); MEAN CORPUSCULAR HEMOGLOBIN 29.1 pg (28.0-32.0); MEAN CORPUSCULAR VOLUME 89.4 fL (80.0-94.0); MEAN PLATELET VOLUME 8.1 fl (7.4-10.4); MONOCYTES % 6.8 % (2.0-8.0); NEUTROPHILS % 81.6 % (40.0-76.0); PLATELET 463 x1000/uL (130-400); RED BLOOD CELL COUNT 3.48 mill/uL (4.7-6.1); RED CELL DISTRIBUTION WIDTH 17.4 % (11.6-14.6)
[2021-11-13] MEDS: MAGNESIUM/ALUMINUM HYDROXIDE/SIMETHICONE 30ML UDC PO PRN (05:59)
[2021-11-13 08:00] VITALS: BP 154/78
[2021-11-13] MEDS: ENOXAPARIN 30MG/0.3ML SYR SUBCUT SCH (08:54)
[2021-11-13] MEDS: FAMOTIDINE 20MG TABLET PO SCH (08:54)
[2021-11-13] MEDS: ATORVASTATIN CALCIUM 20MG TABLET PO SCH (08:54)
[2021-11-13] MEDS: AMLODIPINE 10MG TABLET PO SCH ×2 (08:54→17:30)
[2021-11-13] MEDS: CARVEDILOL 6.25 MG TABLET PO SCH ×2 (08:54→17:30)
[2021-11-13] MEDS: SENNOSIDES/DOCUSATE SOD 8.6/50MG TABLET PO SCH (17:29)
[2021-11-13 20:00] VITALS: BP 133/77
[2021-11-13] MEDS: CEFEPIME 1,000 MG in DEXTROSE 5% WATER 50 ML IV SCH (20:54)
[2021-11-13] MEDS: TRAMADOL 50MG TABLET PO PRN (21:24)
[2021-11-13] MEDS: CLONIDINE 0.2MG TABLET PO PRN (22:44)
[2021-11-14] MEDS: HYDRALAZINE HCL 100MG TABLET PO SCH ×3 (01:58→17:00)
[2021-11-14] MEDS: MAGNESIUM/ALUMINUM HYDROXIDE/SIMETHICONE 30ML UDC PO PRN (06:53)
[2021-11-14 08:00] VITALS: BP 156/81
[2021-11-14] MEDS: FAMOTIDINE 20MG TABLET PO SCH (09:34)
[2021-11-14] MEDS: ATORVASTATIN CALCIUM 20MG TABLET PO SCH (09:35)
[2021-11-14] MEDS: CARVEDILOL 6.25 MG TABLET PO SCH ×2 (09:35→17:00)
[2021-11-14] MEDS: TRAMADOL 50MG TABLET PO PRN ×4 (09:37→17:11)
[2021-11-14] MEDS: AMLODIPINE 10MG TABLET PO SCH ×2 (09:37→17:00)
[2021-11-14] MEDS: ENOXAPARIN 30MG/0.3ML SYR SUBCUT SCH (09:39)
[2021-11-14 10:49] LABS: BASOPHILS % 1.1 % (0.0-2.0); EOSINOPHILS % 0.8 % (0.0-5.0); HEMATOCRIT. 28.7 % (42.0-52.0); HEMOGLOBIN. 9.2 g/dL (14.0-18.0); LYMPHOCYTES % 8.5 % (20.0-50.0); MEAN CORPUSCULAR HEMOGLOBIN 28.9 pg (28.0-32.0); MEAN CORPUSCULAR VOLUME 89.9 fL (80.0-94.0); MEAN PLATELET VOLUME 7.6 fl (7.4-10.4); MONOCYTES % 5.8 % (2.0-8.0); NEUTROPHILS % 83.8 % (40.0-76.0); PLATELET 500 x1000/uL (130-400); RED BLOOD CELL COUNT 3.19 mill/uL (4.7-6.1)
[2021-11-14] MEDS: SENNOSIDES/DOCUSATE SOD 8.6/50MG TABLET PO SCH (17:00)
[2021-11-14] MEDS: CEFEPIME 1,000 MG in DEXTROSE 5% WATER 50 ML IV SCH (21:00)
[2021-11-15] MEDS: HYDRALAZINE HCL 100MG TABLET PO SCH ×3 (02:03→17:00)
[2021-11-15] MEDS: ACETAMINOPHEN 325MG TABLET PO PRN ×2 (02:04→08:37)
[2021-11-15] MEDS: ATORVASTATIN CALCIUM 20MG TABLET PO SCH (09:00)
[2021-11-15] MEDS: ENOXAPARIN 30MG/0.3ML SYR SUBCUT SCH (09:00)
[2021-11-15] MEDS: AMLODIPINE 10MG TABLET PO SCH ×2 (09:00→17:00)
[2021-11-15] MEDS: CARVEDILOL 6.25 MG TABLET PO SCH ×2 (15:03→17:00)
[2021-11-15] MEDS: FAMOTIDINE 20MG TABLET PO SCH (15:03)
[2021-11-15] MEDS: MAGNESIUM/ALUMINUM HYDROXIDE/SIMETHICONE 30ML UDC PO PRN (15:06)
[2021-11-15] MEDS: SENNOSIDES/DOCUSATE SOD 8.6/50MG TABLET PO SCH (17:00)
[2021-11-15 20:00] VITALS: BP 172/62
[2021-11-15] MEDS: CLONIDINE 0.2MG TABLET PO PRN (21:54)
[2021-11-15] MEDS: ONDANSETRON HCL 4MG/2ML INJ IV PRN (22:00)
[2021-11-15] MEDS: TRAMADOL 50MG TABLET PO PRN (22:01)
[2021-11-15] MEDS: CEFEPIME 1,000 MG in DEXTROSE 5% WATER 50 ML IV SCH (22:56)
[2021-11-16] MEDS: HYDRALAZINE HCL 100MG TABLET PO SCH ×3 (02:34→16:43)
[2021-11-16] MEDS: MAGNESIUM/ALUMINUM HYDROXIDE/SIMETHICONE 30ML UDC PO PRN (02:39)
[2021-11-16 06:23] LABS: BASOPHILS % 1.3 % (0.0-2.0); EOSINOPHILS % 0.8 % (0.0-5.0); HEMATOCRIT. 25.7 % (42.0-52.0); HEMOGLOBIN. 8.6 g/dL (14.0-18.0); LYMPHOCYTES % 10.9 % (20.0-50.0); MEAN CORPUSCULAR HEMOGLOBIN 29.1 pg (28.0-32.0); MEAN CORPUSCULAR VOLUME 87.4 fL (80.0-94.0); MEAN PLATELET VOLUME 7.6 fl (7.4-10.4); MONOCYTES % 6.4 % (2.0-8.0); NEUTROPHILS % 80.6 % (40.0-76.0); PLATELET 463 x1000/uL (130-400); RED BLOOD CELL COUNT 2.94 mill/uL (4.7-6.1); RED CELL DISTRIBUTION WIDTH 16.7 % (11.6-14.6)
[2021-11-16] MEDS: ACETAMINOPHEN 325MG TABLET PO PRN (06:58)
[2021-11-16 08:00] VITALS: BP 180/111
[2021-11-16] MEDS: ATORVASTATIN CALCIUM 20MG TABLET PO SCH (08:41)
[2021-11-16] MEDS: FAMOTIDINE 20MG TABLET PO SCH (08:41)
[2021-11-16] MEDS: CARVEDILOL 6.25 MG TABLET PO SCH ×2 (08:42→16:42)
[2021-11-16] MEDS: AMLODIPINE 10MG TABLET PO SCH ×2 (08:42→16:42)
[2021-11-16] MEDS: ENOXAPARIN 30MG/0.3ML SYR SUBCUT SCH (08:43)
[2021-11-16] MEDS: SENNOSIDES/DOCUSATE SOD 8.6/50MG TABLET PO SCH (16:43)
[2021-11-16 20:00] VITALS: BP 167/65
[2021-11-16] MEDS: CEFEPIME 1,000 MG in DEXTROSE 5% WATER 50 ML IV SCH (22:03)
[2021-11-16] MEDS: CLONIDINE 0.2MG TABLET PO PRN (22:04)
[2021-11-17] MEDS: ACETAMINOPHEN 325MG TABLET PO PRN ×3 (00:23→23:45)
[2021-11-17] MEDS: HYDRALAZINE HCL 100MG TABLET PO SCH ×3 (00:39→17:38)
[2021-11-17 08:00] VITALS: BP 161/76
[2021-11-17] MEDS: CARVEDILOL 6.25 MG TABLET PO SCH ×2 (09:20→17:38)
[2021-11-17] MEDS: ENOXAPARIN 30MG/0.3ML SYR SUBCUT SCH (09:20)
[2021-11-17] MEDS: AMLODIPINE 10MG TABLET PO SCH ×2 (09:20→17:38)
[2021-11-17] MEDS: FAMOTIDINE 20MG TABLET PO SCH (09:20)
[2021-11-17 15:10] LABS: 25-HYDROXY VITAMIN D3 21 ng/mL (.)
[2021-11-17] MEDS: SENNOSIDES/DOCUSATE SOD 8.6/50MG TABLET PO SCH (17:00)
[2021-11-17] MEDS: MAGNESIUM/ALUMINUM HYDROXIDE/SIMETHICONE 30ML UDC PO PRN (17:38)
[2021-11-17 20:00] VITALS: BP 168/86
[2021-11-17] MEDS: ATORVASTATIN CALCIUM 20MG TABLET PO SCH (20:06)
[2021-11-17] MEDS: CEFEPIME 1,000 MG in DEXTROSE 5% WATER 50 ML IV SCH (23:03)
[2021-11-18] MEDS: HYDRALAZINE HCL 100MG TABLET PO SCH ×3 (00:54→17:15)
[2021-11-18] MEDS: ACETAMINOPHEN 325MG TABLET PO PRN ×4 (05:37→23:11)
[2021-11-18 06:24] LABS: BASOPHILS % 0.9 % (0.0-2.0); EOSINOPHILS % 0.9 % (0.0-5.0); HEMATOCRIT. 25.7 % (42.0-52.0); HEMOGLOBIN. 8.4 g/dL (14.0-18.0); LYMPHOCYTES % 8.9 % (20.0-50.0); MEAN CORPUSCULAR HEMOGLOBIN 28.9 pg (28.0-32.0); MEAN CORPUSCULAR VOLUME 88.6 fL (80.0-94.0); MEAN PLATELET VOLUME 7.8 fl (7.4-10.4); MONOCYTES % 6.7 % (2.0-8.0); NEUTROPHILS % 82.6 % (40.0-76.0); PLATELET 418 x1000/uL (130-400)
[2021-11-18 08:32] VITALS: BP 155/80
[2021-11-18] MEDS: CARVEDILOL 6.25 MG TABLET PO SCH ×2 (09:00→17:16)
[2021-11-18] MEDS: AMLODIPINE 10MG TABLET PO SCH ×2 (09:25→17:17)
[2021-11-18] MEDS: FAMOTIDINE 20MG TABLET PO SCH (09:25)
[2021-11-18] MEDS: ENOXAPARIN 30MG/0.3ML SYR SUBCUT SCH (09:27)
[2021-11-18] MEDS: BISACODYL 5MG TABLET PO PRN ×2 (12:43→20:32)
[2021-11-18] MEDS: SENNOSIDES/DOCUSATE SOD 8.6/50MG TABLET PO SCH (17:16)
[2021-11-18 20:00] VITALS: BP 140/73
[2021-11-18] MEDS: ATORVASTATIN CALCIUM 20MG TABLET PO SCH (21:26)
[2021-11-18] MEDS: CEFEPIME 1,000 MG in DEXTROSE 5% WATER 50 ML IV SCH (23:16)
[2021-11-19] MEDS: HYDRALAZINE HCL 100MG TABLET PO SCH ×2 (00:25→08:36)
[2021-11-19] MEDS: MAGNESIUM/ALUMINUM HYDROXIDE/SIMETHICONE 30ML UDC PO PRN (02:59)
[2021-11-19] MEDS: ACETAMINOPHEN 325MG TABLET PO PRN (05:50)
[2021-11-19] MEDS ORDERED: LOPERAMIDE HCL 2MG CAPSULE PO PRN (06:30)
[2021-11-19 08:00] VITALS: BP 136/76
[2021-11-19] MEDS: ENOXAPARIN 30MG/0.3ML SYR SUBCUT SCH (08:35)
[2021-11-19] MEDS: FAMOTIDINE 20MG TABLET PO SCH (08:35)
[2021-11-19] MEDS: CARVEDILOL 6.25 MG TABLET PO SCH (08:36)
[2021-11-19] MEDS: AMLODIPINE 10MG TABLET PO SCH (08:36)
[2021-11-19] MEDS ORDERED: ERGOCALCIFEROL 50000UNITS CAPSULE PO SCH (09:00)
[2021-11-19 10:27] VITALS: BP 136/76
== END 2021-11-19 12:00 | disposition home health service (06) | DRG 551 ==
LOC: UNDOADMIN 23:30
PROVIDERS: ADMIT Physical Medicine & Rehabilitation Spinal Cord Injury Medicine; ATTEND Internal Medicine
PROC: 5A1D70Z Performance of Urinary Filtration, Intermittent, Less than 6 Hours Per Day (ICD-10-PCS; principal; 2021-11-11)
PROC: 5A1D70Z Performance of Urinary Filtration, Intermittent, Less than 6 Hours Per Day (ICD-10-PCS; 2021-11-14)
PROC: 5A1D70Z Performance of Urinary Filtration, Intermittent, Less than 6 Hours Per Day (ICD-10-PCS; 2021-11-16)
PROC: 5A1D70Z Performance of Urinary Filtration, Intermittent, Less than 6 Hours Per Day (ICD-10-PCS; 2021-11-18)
DX: M48.061 Spinal stenosis, lumbar region without neurogenic claudication (principal); A41.01 Sepsis due to Methicillin susceptible Staphylococcus aureus; G06.1 Intraspinal abscess and granuloma; N18.6 End stage renal disease; M46.26 Osteomyelitis of vertebra, lumbar region; E46 Unspecified protein-calorie malnutrition; E87.1 Hypo-osmolality and hyponatremia; I12.0 Hypertensive chronic kidney disease with stage 5 chronic kidney disease or end stage renal disease; G82.20 Paraplegia, unspecified; D63.8 Anemia in other chronic diseases classified elsewhere; E11.22 Type 2 diabetes mellitus with diabetic chronic kidney disease; E11.69 Type 2 diabetes mellitus with other specified complication; E55.9 Vitamin D deficiency, unspecified; Z20.822 Contact with and (suspected) exposure to COVID-19; E87.5 Hyperkalemia; F39 Unspecified mood [affective] disorder; G89.29 Other chronic pain; I16.0 Hypertensive urgency; K21.9 Gastro-esophageal reflux disease without esophagitis; K29.70 Gastritis, unspecified, without bleeding; K59.00 Constipation, unspecified; I36.1 Nonrheumatic tricuspid (valve) insufficiency; Z74.01 Bed confinement status; Z99.2 Dependence on renal dialysis; Z68.23 Body mass index [BMI] 23.0-23.9, adult; M79.609 Pain in unspecified limb; R26.9 Unspecified abnormalities of gait and mobility; R53.81 Other malaise
CPT/HCPCS: 36415; 80048; 80053; 82306; 82607; 82728; 82746; 83540; 83550; 84134; 84145; 84443; 85025; 86705; 86709; 86803; 87340; 87426; 97110; 97116; 97150; 97162; 97166; 97530; 97535; J0692; J1650; J2405; J7030; J7060

== ENCOUNTER 2021-12-02 04:51 | Emergency (ER) | payer MEDICARE, MEDICAID ==
[~2021-12-02] VITALS: Ht 188 cm; Wt 82.0 kg
[~2021-12-02 04:51] MED LIST changes: +ATOR20TA PO; +COR6 PO; +HYDR100T26 PO; +LACT1CAP56 PO; +PROT40 PO
[2021-12-02] MEDS ORDERED: HYDROCODONE/ACETAMINOPHEN 10/325MG TABLET PO ONE (06:00)
[2021-12-02] MEDS ORDERED: KETOROLAC 60MG/2ML VIAL IM ONE (06:00)
[2021-12-02 08:45] VITALS: BP 162/85
== END 2021-12-02 09:31 | disposition home or self-care (01) ==
LOC: ER 04:51
DX: G89.29 Other chronic pain (principal); M54.50 Low back pain, unspecified; I10 Essential (primary) hypertension; E11.9 Type 2 diabetes mellitus without complications
CPT/HCPCS: 96372; 99283; J1885

== ENCOUNTER 2021-12-05 10:30 | Emergency (ER) | payer MEDICARE, MEDICAID ==
[~2021-12-05] VITALS: Ht 188 cm; Wt 78.0 kg
[2021-12-05 11:53] VITALS: BP 165/85
== END 2021-12-05 16:38 | disposition left against medical advice (07) ==
LOC: ER 10:46
DX: I12.0 Hypertensive chronic kidney disease with stage 5 chronic kidney disease or end stage renal disease (principal); N18.6 End stage renal disease; D64.9 Anemia, unspecified; Z99.2 Dependence on renal dialysis
CPT/HCPCS: 99283

== ENCOUNTER 2021-12-07 09:56 | Inpatient (IN) | payer MEDICARE, MEDICAID ==
[2021-12-07] VITALS (10 sets, daily range): BP systolic 118–175; BP diastolic 54–86
[~2021-12-07] VITALS: Ht 188 cm; Wt 89.4 kg
[2021-12-07] MEDS ORDERED: HYDROCODONE/ACETAMINOPHEN 10/325MG TABLET PO NR (10:45)
[2021-12-07 12:36] LABS: BASOPHILS % 0.6 % (0.0-2.0); EOSINOPHILS % 0.6 % (0.0-5.0); LYMPHOCYTES % 11.5 % (20.0-50.0); MEAN CORPUSCULAR HEMOGLOBIN 29.6 pg (28.0-32.0); MEAN CORPUSCULAR VOLUME 91.8 fL (80.0-94.0); MONOCYTES % 6.9 % (2.0-8.0); NEUTROPHILS % 80.4 % (40.0-76.0); PLATELET 458 x1000/uL (130-400); RED BLOOD CELL COUNT 2.05 mill/uL (4.7-6.1); RED CELL DISTRIBUTION WIDTH 17.9 % (11.6-14.6)
[2021-12-07 12:44] LABS: CHLORIDE 102 mEq/L (98-107)
[2021-12-07 12:49] LABS: PROTHROMBIN TIME 10.6 sec (9.6-11.0)
[2021-12-07 12:53] LABS: HEMATOCRIT. 18.8 % (42.0-52.0); HEMOGLOBIN. 6.1 g/dL (14.0-18.0)
[2021-12-07 13:09] LABS: HEPATITIS B SURFACE ANTIGEN NEGATIVE
[2021-12-07] MEDS ORDERED: MORPHINE SULFATE 2 MG/ML CPJ (NOT FOR IM USE) IV PRN (13:45)
[2021-12-07] MEDS ORDERED: ONDANSETRON HCL 4MG/2ML INJ IV PRN (13:45)
[2021-12-07] MEDS ORDERED: DOCUSATE SODIUM 100MG CAPSULE PO PRN (13:45)
[2021-12-07] MEDS ORDERED: GUAIFENESIN 200MG/10ML SUGAR FREE UDC PO PRN (13:45)
[2021-12-07] MEDS ORDERED: MAGNESIUM/ALUMINUM HYDROXIDE/SIMETHICONE 30ML UDC PO PRN (13:45)
[2021-12-07] MEDS ORDERED: DIPHENHYDRAMINE 50MG/ML VIAL IV PRN (13:45)
[2021-12-07] MEDS ORDERED: HYDRALAZINE 20MG/ML VIAL IV PRN (13:45)
[2021-12-07] MEDS ORDERED: IPRATROPIUM/ALBUTEROL 0.5-3(2.5)MG/3ML NEB HHN PRN (13:45)
[2021-12-07] MEDS ORDERED: NALOXONE HCL 0.4MG/ML VIAL IV PRN (13:45)
[2021-12-07] MEDS ORDERED: HYDRALAZINE 10 MG in SODIUM CHLORIDE 0.9% 49.5 ML IV PRN (13:45)
[2021-12-07] MEDS: SODIUM CHLORIDE 0.9% INJ 3ML FLUSH IVF SCH ×2 (14:01→21:07)
[2021-12-07] MEDS: CLONIDINE 0.1MG TABLET PO PRN (21:05)
[2021-12-07] MEDS: HYDROCODONE/ACETAMINOPHEN 5/325MG TABLET PO PRN (21:06)
[2021-12-08] VITALS (9 sets, daily range): BP systolic 105–173; BP diastolic 69–90
[2021-12-08 01:26] LABS: HEMATOCRIT 18.9 % (42.0-52.0)
[2021-12-08] MEDS: CLONIDINE 0.1MG TABLET PO PRN ×3 (04:14→20:51)
[2021-12-08] MEDS: HYDROCODONE/ACETAMINOPHEN 5/325MG TABLET PO PRN ×2 (04:18→12:08)
[2021-12-08] MEDS: ACETAMINOPHEN 325MG TABLET PO PRN ×2 (04:36→20:50)
[2021-12-08] MEDS: SODIUM CHLORIDE 0.9% INJ 3ML FLUSH IVF SCH ×3 (07:00→20:51)
[2021-12-08] MEDS: AMLODIPINE 10MG TABLET PO SCH (12:30)
[2021-12-08] MEDS: HYDRALAZINE HCL 100MG TABLET PO SCH ×2 (14:16→18:00)
[2021-12-08] MEDS ORDERED: AMLODIPINE 10MG TABLET PO SCH (17:00)
[2021-12-08 17:29] LABS: BASOPHILS % 0.4 % (0.0-2.0); EOSINOPHILS % 0.4 % (0.0-5.0); HEMATOCRIT. 25.1 % (42.0-52.0); HEMOGLOBIN. 8.2 g/dL (14.0-18.0); LYMPHOCYTES % 7.1 % (20.0-50.0); MEAN CORPUSCULAR HEMOGLOBIN 28.1 pg (28.0-32.0); MEAN CORPUSCULAR VOLUME 85.6 fL (80.0-94.0); MEAN PLATELET VOLUME 7.1 fl (7.4-10.4); MONOCYTES % 4.8 % (2.0-8.0); NEUTROPHILS % 87.3 % (40.0-76.0); PLATELET 525 x1000/uL (130-400); RED BLOOD CELL COUNT 2.93 mill/uL (4.7-6.1); RED CELL DISTRIBUTION WIDTH 19.1 % (11.6-14.6)
[2021-12-08 17:39] LABS: CHLORIDE 103 mEq/L (98-107)
[2021-12-08] MEDS: CARVEDILOL 6.25 MG TABLET PO SCH (20:51)
[2021-12-08 21:20] LABS: HEMATOCRIT 21.6 % (42.0-52.0); HEMOGLOBIN 7.2 g/dL (14.0-18.0); MEAN CORPUSCULAR HEMOGLOBIN 28.5 pg (28.0-32.0); MEAN CORPUSCULAR VOLUME 85.7 fL (80.0-94.0); PLATELET 485 x1000/uL (130-400); RED BLOOD CELL COUNT 2.52 mill/uL (4.7-6.1); RED CELL DISTRIBUTION WIDTH 18.9 % (11.6-14.6)
[2021-12-08 21:35] LABS: PROTHROMBIN TIME 10.9 sec (9.6-11.0)
[2021-12-09] VITALS (8 sets, daily range): BP systolic 133–184; BP diastolic 79–96
[2021-12-09] MEDS: ACETAMINOPHEN 325MG TABLET PO PRN (03:34)
[2021-12-09] MEDS: SODIUM CHLORIDE 0.9% INJ 3ML FLUSH IVF SCH ×2 (05:37→13:29)
[2021-12-09 07:07] LABS: HEMATOCRIT. 21.1 % (42.0-52.0); HEMOGLOBIN. 7.1 g/dL (14.0-18.0); MEAN CORPUSCULAR HEMOGLOBIN 28.5 pg (28.0-32.0); MEAN CORPUSCULAR VOLUME 85.2 fL (80.0-94.0); MEAN PLATELET VOLUME 6.9 fl (7.4-10.4); PLATELET 471 x1000/uL (130-400); RED BLOOD CELL COUNT 2.48 mill/uL (4.7-6.1); RED CELL DISTRIBUTION WIDTH 18.6 % (11.6-14.6)
[2021-12-09] MEDS: CARVEDILOL 6.25 MG TABLET PO SCH (07:56)
[2021-12-09] MEDS: AMLODIPINE 10MG TABLET PO SCH (07:56)
[2021-12-09] MEDS: HYDRALAZINE HCL 100MG TABLET PO SCH ×3 (07:57→16:34)
[2021-12-09 09:30] LABS: PLATELET ESTIMATE INCREASED
[2021-12-09] MEDS: HYDROCODONE/ACETAMINOPHEN 5/325MG TABLET PO PRN (09:54)
[2021-12-09] MEDS ORDERED: LOSARTAN POTASSIUM 50 MG TABLET PO SCH (14:45)
[2021-12-09] MEDS ORDERED: FOLIC ACID/VITAMIN B COMP W-C TABLET PO SCH (14:45)
[2021-12-09] MEDS ORDERED: CEFAZOLIN 2,000 MG in DEXT 5% WATER 100 ML IV SCH (16:00)
[2021-12-09] MEDS: CLONIDINE 0.1MG TABLET PO PRN (16:45)
[2021-12-09] MEDS ORDERED: SEVELAMER CARBONATE 800 MG TABLET PO SCH (17:50)
[2021-12-09] MEDS ORDERED: EPOETIN ALFA-EPBX 4,000 UNIT/ML VIAL SUBCUT SCH (21:00)
== END 2021-12-09 17:35 | disposition left against medical advice (07) | DRG 682 ==
LOC: ER 09:56 → 6EST 11:27 → ENRESERV 13:20
PROVIDERS: ADMIT Internal Medicine; ATTEND Internal Medicine
PROC: 30233N1 Transfusion of Nonautologous Red Blood Cells into Peripheral Vein, Percutaneous Approach (ICD-10-PCS; principal; 2021-12-09)
DX: I12.0 Hypertensive chronic kidney disease with stage 5 chronic kidney disease or end stage renal disease (principal); N18.6 End stage renal disease; M86.9 Osteomyelitis, unspecified; G89.18 Other acute postprocedural pain; E11.22 Type 2 diabetes mellitus with diabetic chronic kidney disease; E78.00 Pure hypercholesterolemia, unspecified; E87.70 Fluid overload, unspecified; M54.50 Low back pain, unspecified; R60.0 Localized edema; D63.1 Anemia in chronic kidney disease; Z82.49 Family history of ischemic heart disease and other diseases of the circulatory system; Z53.29 Procedure and treatment not carried out because of patient's decision for other reasons; Z86.718 Personal history of other venous thrombosis and embolism; Z99.2 Dependence on renal dialysis; Z86.19 Personal history of other infectious and parasitic diseases
CPT/HCPCS: 36415; 80048; 80053; 82962; 85014; 85018; 85025; 85027; 85384; 86705; 86709; 86803; 86850; 86900; 86920; 87340; 93970; 97161; 97162; 99285; J0360; J0690; J7060; P9016